=== PATIENT | female | born 1945 | race Caucasian/White ===

== ENCOUNTER → 2017-07-06 | Outpatient (CLI) | payer MEDICARE, OTHER ==
[~2017-07-06] MED LIST: ALBU.5I NEB; ALBUAER3 INH; AMLO5TAB22 PO; CEPH500 PO; CHOL4POW4 PO; CYAN1TAB24 PO; DULO1CAP2 PO; FERR324T4 PO; FOLI1 PO; FOLI400T PO; FURO40TA PO; KLOR10TA PO; LASI20TA PO; LEVO.025 PO; LEVO25TA4 PO; MELA10TA3 PO; MELA5 PO; METR-1 PO; NYSTT TOP; OXYB5 PO; OXYB5TAB PO; PROB1CAP PO; QUET1TAB7 PO; QUET25 PO; SPIR50TA21 PO; THIA100T PO; VALE445C2 PO; VALE500C2 PO; VITA10002 PO; Z.0.OXYGENDME FM
[2017-07-06 10:49] LABS: AUTOMATED NEUTROPHIL # 5.1 TH/MM3 (1.8-7.7); BASOPHIL # 0.1 TH/MM3 (0-0.2); EOSINOPHIL # 0.3 TH/MM3 (0-0.4); HEMATOCRIT 44.3 % (35.0-46.0); HEMOGLOBIN 15.1 GM/DL (11.6-15.3); LYMPH % 15.4 % (9.0-44.0); LYMPHOCYTE # 1.1 TH/MM3 (1.0-4.8); MEAN CELL VOLUME 81.6 FL (80.0-100.0); MEAN CORPUSCULAR HEMOGLOBIN 27.8 PG (27.0-34.0); MEAN CORPUSCULAR HGB CONC 34.1 % (32.0-36.0); MEAN PLATELET VOLUME 7.1 FL (7.0-11.0); MONOCYTE # 0.6 TH/MM3 (0-0.9); NEUT % 71.6 % (16.0-70.0); PLATELET COUNT 227 TH/MM3 (150-450); RED BLOOD COUNT 5.43 MIL/MM3 (4.00-5.30); WHITE BLOOD COUNT 7.2 TH/MM3 (4.0-11.0)
[2017-07-06 10:59] LABS: ALBUMIN 3.3 GM/DL (3.4-5.0); ALT (GPT) 19 U/L (10-53); AST (GOT) 15 U/L (15-37); BICARBONATE 31.3 MEQ/L (21.0-32.0); BLOOD UREA NITROGEN 12 MG/DL (7-18); CHLORIDE 103 MEQ/L (98-107); CREATININE 0.92 MG/DL (0.50-1.00); GLOMERULAR FILTRATION RATE 60 ML/MIN (>89); GLUCOSE,FASTING 95 MG/DL (74-99); SODIUM (NA) 140 MEQ/L (136-145)
[2017-07-06 11:01] LABS: ALKALINE PHOSPHATASE 85 U/L (45-117); TOTAL BILIRUBIN ADULT 0.8 MG/DL (0.2-1.0); TOTAL PROTEIN 7.7 GM/DL (6.4-8.2)
--- NOTE | 2017-07-06 11:43 | RADRPT ---
EXAM DATE/TIME: 07/06/2017 11:01 [place] COMPARISON: No previous studies available for comparison. INDICATIONS : Evaluate for pneumothorax, pneumonia, or communicable disease. Pre op for lap Rehan. MEDICAL HISTORY : Chronic shortness of breath. SURGICAL HISTORY : None. ENCOUNTER: Initial ACUITY: 1 day PAIN SCORE: 0/10 LOCATION: Bilateral chest FINDINGS: PA and lateral views of the chest demonstrate the lungs to be symmetrically aerated without evidence of mass, infiltrate or effusion. Hiatal hernia. The cardiomediastinal contours are unremarkable. Oss eous structures are intact. CONCLUSION: No acute disease. Kevin Eduardo MD on July 06, 2017 at 11:40 Board Certified Radiologist. This report was verified electronically.
== END ==
LOC: CPRE 09:53
PROVIDERS: ATTEND Surgery Trauma Surgery
DX: Z01.811 Encounter for preprocedural respiratory examination (principal); Z01.812 Encounter for preprocedural laboratory examination; Z01.818 Encounter for other preprocedural examination; K44.9 Diaphragmatic hernia without obstruction or gangrene; K21.9 Gastro-esophageal reflux disease without esophagitis
CPT/HCPCS: 36415; 71046; 80053; 85025

== ENCOUNTER 2017-07-13 05:57 | Inpatient (IN) | payer MEDICARE, OTHER ==
[~2017-07-13] VITALS: Ht 149.9 cm; Wt 115.0 kg
[~2017-07-13 05:57] MED LIST changes: -AMLO5TAB22 PO; -CEPH500 PO; -CHOL4POW4 PO; -FERR324T4 PO; -FOLI1 PO; -LASI20TA PO; -LEVO.025 PO; -MELA10TA3 PO; -METR-1 PO; -NYSTT TOP; -OXYB5 PO; -PROB1CAP PO; -QUET25 PO; -SPIR50TA21 PO; -THIA100T PO; -VALE500C2 PO; -VITA10002 PO; -Z.0.OXYGENDME FM
[2017-07-13] MEDS ORDERED: POVIDONE IODINE 5% (ANTISEPSIS KIT) 4 APPLICATIONS EACH NARE PRN (06:15)
[2017-07-13] MEDS ORDERED: LACTATED RINGER'S 1000 ML IV PRN (06:15)
[2017-07-13] MEDS ORDERED: METOPROLOL TARTRATE 25 MG TAB PO PRN (06:15)
[2017-07-13] MEDS ORDERED: SODIUM CHLORID 0.9% 500 ML IV PRN (06:15)
[2017-07-13] MEDS ORDERED: CHLORHEXIDINE GLUCONATE 2 % 1 PACK (2 CLOTHS) TOPICAL PRN (06:15)
[2017-07-13] MEDS ORDERED: METRONIDAZOLE 500 MG/100 ML ISONTONIC SOLN IV PRN (06:30)
[2017-07-13] MEDS ORDERED: CEFAZOLIN INJ 2,000 MG in SODIUM CHLORIDE 0.9% INJ 100 ML IV PRN (06:30)
[2017-07-13] MEDS ORDERED: ACETAMINOPHEN 1000 MG/100 ML 100 ML IV ONE (06:58)
[2017-07-13] MEDS ORDERED: fentaNYL CITRATE 250 MCG/5 ML AMP ONE (06:58)
[2017-07-13] MEDS ORDERED: BUPIVACAINE/EPINEPHRINE 0.25% 50 ML VIAL ONE (07:21)
[2017-07-13] MEDS: LACTATED RINGER'S 1000 ML INJ 1,000 ML IV SCH (10:05)
[2017-07-13] MEDS ORDERED: SUGAMMADEX SODIUM 200 MG/2 ML VIAL IV PUSH ONE (10:06)
[2017-07-13] MEDS ORDERED: DO NOT ADM ANY ANTICOAGULANT DRUGS PRN (10:12)
[2017-07-13] MEDS ORDERED: RESP: ALBUTEROL 1.25 MG/3 ML NEB (PRN) NEB (10:15)
[2017-07-13] MEDS ORDERED: MORPHINE SULFATE 8 MG/ML INJ IV PUSH PRN (10:15)
[2017-07-13] MEDS ORDERED: oxyCODONE/ACETAMINOPHEN 5 MG/325 MG TAB PO PRN (10:15)
[2017-07-13] MEDS ORDERED: ONDANSETRON HCL 4 MG/2 ML VIAL IV PUSH PRN (10:15)
[2017-07-13] MEDS ORDERED: MAGNESIUM HYDROXIDE SUSP 30 ML CUP PO PRN (10:15)
[2017-07-13] MEDS ORDERED: KETOROLAC TROMETHAMINE 30 MG/ML (IVP) VIAL IVP PRN (10:15)
[2017-07-13] MEDS ORDERED: Post-op Orders (for Pharmacy) XX ONE (10:15)
[2017-07-13] MEDS ORDERED: *LABETALOL HCL 100 MG/20 ML VIAL PERIprocedural Use ONLY ONE (10:16)
--- NOTE | 2017-07-13 10:19 | PD.PROCEDR ---
Procedure Note Procedure Operative report Preoperative diagnosis Symptomatic hiatal hernia with gastroesophageal reflux disease. Cholelithiasis Postoperative diagnosis Same Procedure Laparoscopic repair hiatal hernia with [place] BIO a mesh and partial fundoplication Laparoscopic cholecystectomy Surgeon Nacho Alvarado MD Insurance Sales Representative [place] MS3 so. Anesthesia General endotracheal Indications for procedure This is a pleasant obese 71-year-old woman who has a known 5 cm hiatal hernia on upper endoscopy with the third of her stomach up in her chest on CT abdomen and pelvis as well as gallstones. She complains of burning epigastric pain, made worse with eating. She underwent preoperative cardiac and pulmonary evaluation was cleared for surgery. She has difficulty with regurgitation and continued gastroesophageal reflux disease. She was desirous of operative therapy. Description of procedure in detail Patient was identified as Hannah Britton taken to the operating room and placed in a supine position. Sequential compression devices were placed on bilateral lower extremities. Following induction of adequate general endotracheal anesthesia the patient's abdomen was prepped and draped in usual sterile fashion with Betadine. A timeout procedure was performed. Following completion timeout procedure everyone's satisfaction within the room local anesthetic was placed in each proposed trocar incision site. Starting about 6 cm above the umbilicus and 2 cm vertical incision was carried out the scalpel. Dissection continued posteriorly to level of midline fascia which was incised with a scalpel. Entry into the peritoneal cavity was facilitated with the surgeon's finger. The applied medical balloon [place] trocar was placed into the peritoneal cavity its balloon inflated and CO2 insufflation to level of 15 mmHg ensued. Patient was placed in a steep reverse Trendelenburg position and for upper abdominal 5 mm trochars placed in the peritoneal cavity under direct laparoscopic view after incision and skin with a scalpel. [place] flex liver retractor was placed beneath a very large left lateral lobe the liver with changes consistent with fatty infiltrated liver was retracted anteriorly and held position of the robot arm. Attention was then turned to taking down the gastric hepatic ligament. Using the harmonic scalpel was performed which allowed for identification of the right side diaphragmatic crura. Circumferentially the hiatal hernia sac was released from the anterior mediastinum taking care to avoid injury to the esophagus and stomach. A window at the GE junction was developed and the neelam flex reina's hook retractor was placed through this opening allowing for retraction of the GE junction inferiorly below the diaphragm. Further attachments of the stomach to the mediastinal hiatal hernia sac with were released. The sac was removed from the mediastinum and its entirety. Attention was then turned to approximation of the diaphragmatic crura posteriorly. This was performed with interrupted 0 Ethibond sutures using the suture assistant associate full professor device and a bio a pledget. A 36 [place] esophageal bougie was then placed down through the esophagus by the nurse stockroom coordinator into the stomach. A piece of bile a cut into a C-shaped placed in reverse present position to reinforce the diaphragmatic repair was then placed around the esophagus. It was sutured in position with the 0 Ethibond sutures at the 6 and 10 o'clock position to the diaphragmatic crura. The bougie was withdrawn above the GE junction allowing for mobilization of the fundus of the stomach through posterior window. Partial fundoplication was then performed by suturing the wrap to the lateral wall of the esophagus on both sides using 2 interrupted 0 Ethibond sutures. 2 additional sutures were placed the posterior wrap to the bio a mesh and the diaphragmatic crura. Once this had been completed 4 mL of Tisseel fibrin sealant was then placed to further encourage adherence of the bio a to the undersurface of the diaphragm muscle. 10 cc of local anesthetic was placed in subdiaphragmatic position. The neelam flex liver retractor was then removed from the undersurface of the left lateral lobe the liver and attention was turned to cholecystectomy. The gallbladder was removed from the gallbladder fossa and a dome down technique using the harmonic scalpel. The cystic artery divided with a harmonic scalpel and the cystic duct was isolated from surrounding tissues and ligated proximally distally with 0 PDS Endoloops. The cystic duct was divided between the Endoloops placed into an Endo retrieval bag and removed through the 10 mm camera port incision site and passed off the field for pathologic evaluation. Gallbladder fossa was hemostatic. The cystic duct ligature remained intact. The cystic arterial stump was hemostatic. There was no bilious or bloody drainage. 10 cc of local anesthetic was placed in the subhepatic position. All trochars were removed under direct visualization there was no evidence of bleeding from trocar sites. The abdomen was actively desufflated through the camera port incision site. This port was then removed. Fascial incision was closed with 2 interrupted 0 Vicryl [id number] sutures. Port sites were irrigated with saline and closed with 4 Monocryl subcuticular sutures. Dressings were applied with Mastisol and half-inch brown Steri-Strips. Patient tolerated the procedures without apparent complication. Sponge needle and instrument counts were correct at the end of the case. End dictation operative report on patient [place] Nacho Schmitz MD Jul 13, 2017 10:19
[2017-07-13] MEDS ORDERED: PERC5TAB12 PO (10:20)
[2017-07-13] MEDS ORDERED: RESP: ALBUTEROL CONC 2.5 MG/0.5 ML NEB NEB PRN (10:30)
[2017-07-13] MEDS ORDERED: ALBUTEROL SULFATE 90 MCG/ACT HFA 8 GM INHALER INH PRN (10:30)
[2017-07-13] MEDS ORDERED: *morphine SULFATE 4 MG/ML PERIprocedure ONLY ONE ×2 (11:20→11:45)
[2017-07-13] MEDS ORDERED: ESMOLOL HCL 100 MG/10 ML VIAL IV ONE (12:00)
[2017-07-13] MEDS ORDERED: ceFAZolin INJ 1,000 MG VIAL IV ONE (12:00)
[2017-07-13] MEDS ORDERED: VECURONIUM BROMIDE 20 MG VIAL IV ONE (12:00)
[2017-07-13] MEDS ORDERED: ePHEDrine/NS 25 MG/5 ML SYRINGE IV ONE (12:00)
[2017-07-13] MEDS ORDERED: LIDOCAINE HCL 1% PF 5 ML SYRINGE OTHER ONE (12:00)
[2017-07-13] MEDS ORDERED: ROCURONIUM INJ 50 MG/5 ML SYRINGE IV PUSH ONE (12:00)
[2017-07-13] MEDS ORDERED: PROPOFOL 200 MG/20 ML AMP IV ONE (12:00)
[2017-07-13] MEDS ORDERED: ONDANSETRON HCL 4 MG/2 ML VIAL IV PUSH ONE (12:00)
[2017-07-13] MEDS ORDERED: DEXAMETHASONE SOD PHOS 4 MG/ML VIAL IV ONE (12:00)
[2017-07-13] MEDS ORDERED: KETOROLAC TROMETHAMINE 30 MG/ML (IVP) VIAL IV PUSH ONE (12:00)
[2017-07-13] MEDS ORDERED: LACTATED RINGER'S 1000 ML INJ 1,000 ML IV ONE (12:00)
[2017-07-13] MEDS ORDERED: LABETALOL HCL 100 MG/20 ML VIAL IV ONE (12:00)
[2017-07-13] MEDS ORDERED: PHENYLEPH/NS 1000 MCG/10 ML SYR IV ONE (12:00)
[2017-07-13] MEDS ORDERED: NEOSTIGMINE 5 MG/5 ML SYRINGE IV PUSH ONE (12:00)
[2017-07-13] MEDS ORDERED: STERILE WATER FOR INJECTION 20 ML VIAL IV ONE (12:00)
[2017-07-13] MEDS ORDERED: GLYCOPYRROLATE 1 MG/5 ML SYRINGE IV PUSH ONE (12:00)
[2017-07-13] MEDS: oxyCODONE/ACETAMINOPHEN 5 MG/325 MG TAB PO PRN ×2 (15:01→19:53)
[2017-07-13 16:00] VITALS: BP 132/62; PULSE 85; RESP 18; TEMP 97.8; O2SAT 94
[2017-07-13 16:26] VITALS: O2SAT 94
[2017-07-13] MEDS: QUEtiapine FUMARATE 25 MG TAB PO SCH (19:50)
[2017-07-13] MEDS: MELATONIN 5 MG TAB PO SCH (19:50)
[2017-07-13 20:00] VITALS: BP 130/59; PULSE 87; RESP 16; TEMP 98; O2SAT 93
[2017-07-14] VITALS: BP 124/63; PULSE 81; RESP 16; TEMP 97.8; O2SAT 92
[2017-07-14] MEDS: LEVOTHYROXINE SODIUM 25 MCG TAB PO SCH (05:16)
[2017-07-14] MEDS: oxyCODONE/ACETAMINOPHEN 5 MG/325 MG TAB PO PRN ×4 (05:16→20:03)
[2017-07-14] MEDS: LACTATED RINGER'S 1000 ML INJ 1,000 ML IV SCH ×2 (05:16→14:41)
[2017-07-14 08:00] VITALS: BP 121/59; PULSE 80; RESP 17; TEMP 97.6; O2SAT 96
[2017-07-14] MEDS ORDERED: VALERIAN ROOT PO SCH (09:00)
[2017-07-14] MEDS: TOLTERODINE TARTRATE 2 MG CAP LA PO SCH (09:22)
[2017-07-14] MEDS: POTASSIUM CHLORIDE 10 MEQ CONTROLLED RELEASE TAB PO SCH (09:22)
[2017-07-14] MEDS: QUEtiapine FUMARATE 25 MG TAB PO SCH ×2 (09:23→22:04)
[2017-07-14] MEDS: FOLIC ACID 1 MG TAB PO SCH (09:23)
[2017-07-14] MEDS: FUROSEMIDE 40 MG TAB PO SCH (09:23)
[2017-07-14] MEDS: DULoxetine HCl DR 30 MG CAP PO SCH (09:23)
[2017-07-14] MEDS: CYANOCOBALAMIN 1,000 MCG TAB PO SCH (09:24)
[2017-07-14] MEDS: ENOXAPARIN SODIUM 30 MG/0.3 ML SYRINGE SQ SCH (09:24)
--- NOTE | 2017-07-14 11:24 | HHI.DS ---
Discharge Summary Admission Date Jul 13, 2017 at 10:09 Discharge Date: Jul 15, 2017 Admitting Diagnosis Hiatal hernia, gastroesophageal reflux disease, cholelithiasis Procedures Laparoscopic repair hiatal hernia with [place] bio a mesh and partial fundoplication, laparoscopic cholecystectomy Brief History Pleasant 71-year-old morbidly obese woman has had progressive difficulties with gastroesophageal reflux disease and dysphagia. She has had upper abdominal discomfort. She has a known hiatal hernia. She has had esophageal changes consistent with reflux. She has gallstones. She was desirous of surgical therapy. Significant Findings Moderate size hiatal hernia. Partial fundoplication performed. Gallbladder removed and sent to pathology. Gallstones palpated within gallbladder. Minimal operative blood loss. PE at Discharge Patient is developed a itchy rash in the left upper extremity. Incision sites on the abdomen are all healing well but he Steri-Strips. There are no signs of infection. Hospital Course Patient was admitted through same-day surgery taken to the operating room for the above-mentioned procedure. She has normal postsurgical discomfort. She has early satiety but is able to swallow without difficulties. Benadryl has been ordered for her left upper extremity itchy rash. The patient was a little unsteady in her feet and desired staying 1 more night in the hospital prior to planned discharge for tomorrow. Pt Condition on Discharge: Good Discharge Disposition: Discharge Home Discharge Instructions DIET: Follow Instructions for: Full Liquid Diet Activities you can perform: Shower Only-No Bath Activities to Avoid: Strenuous Activity, Driving Nacho Alvarado MD Jul 14, 2017 11:24
--- NOTE | 2017-07-14 11:40 | HHI.PR ---
Subjective Subjective Notes Patient is doing pretty well. She has some incisional tenderness in the supraumbilical incision has had complaints of some shoulder pain. She is swallowing but gets full quickly. Objective Vitals/I&O Vital Signs Date Time Temp Pulse Resp B/P (MAP) Pulse Ox O2 Delivery O2 Flow Rate FiO2 07/14/17 08:00 97.6 80 17 121/59 (79) 96 07/13/17 16:26 Nasal Cannula 2.00 Cardiovascular: Regular Lungs: Clear Abdomen: Non-distended, Post-op tenderness Narrative Exam Patient is developed a itchy rash in the left upper extremity. Incision sites on the abdomen are all healing well but he Steri-Strips. There are no signs of infection. A/P Assessment and Plan Postoperative day 1 status post laparoscopic repair hiatal hernia with [place] bio a mesh and partial fundoplication, laparoscopic cholecystectomy. Doing well overall. Itchy rash left upper extremity to be treated with Benadryl. Patient feels a little shaky on her feet and asked to be discharged tomorrow. Orders for discharge have been placed for Sunday. As long as she is able to tolerate liquids by mouth can get up to the bathroom and her pain is well- controlled with Percocet she can be discharged tomorrow. Orders have been placed and instructions have been provided. A prescription for Percocet is on her chart. Nacho Alvarado MD Jul 14, 2017 11:40
[2017-07-14 12:00] VITALS: BP 127/60; PULSE 74; RESP 19; TEMP 97.4; O2SAT 95
[2017-07-14] MEDS: diphenhydrAMINE HCL 25 MG CAP PO PRN ×2 (12:53→20:03)
[2017-07-14 16:00] VITALS: BP 118/53; PULSE 78; RESP 15; TEMP 97.2; O2SAT 96
[2017-07-14 20:00] VITALS: BP 124/59; PULSE 70; RESP 16; TEMP 97.5; O2SAT 96
[2017-07-14] MEDS: MELATONIN 5 MG TAB PO SCH (22:04)
[2017-07-15] VITALS: BP 138/67; PULSE 65; RESP 16; TEMP 97.3; O2SAT 95
[2017-07-15] MEDS: oxyCODONE/ACETAMINOPHEN 5 MG/325 MG TAB PO PRN ×2 (04:18→11:43)
[2017-07-15] MEDS: LEVOTHYROXINE SODIUM 25 MCG TAB PO SCH (05:52)
[2017-07-15 08:00] VITALS: BP 99/52; PULSE 69; RESP 17; TEMP 97.1; O2SAT 90
[2017-07-15] MEDS: POTASSIUM CHLORIDE 10 MEQ CONTROLLED RELEASE TAB PO SCH (09:09)
[2017-07-15] MEDS: FUROSEMIDE 40 MG TAB PO SCH (09:09)
[2017-07-15] MEDS: DULoxetine HCl DR 30 MG CAP PO SCH (09:09)
[2017-07-15] MEDS: TOLTERODINE TARTRATE 2 MG CAP LA PO SCH (09:09)
[2017-07-15] MEDS: FOLIC ACID 1 MG TAB PO SCH (09:10)
[2017-07-15] MEDS: CYANOCOBALAMIN 1,000 MCG TAB PO SCH (09:10)
[2017-07-15] MEDS: QUEtiapine FUMARATE 25 MG TAB PO SCH (09:10)
[2017-07-15] MEDS: ENOXAPARIN SODIUM 30 MG/0.3 ML SYRINGE SQ SCH (09:11)
== END 2017-07-15 11:47 | disposition home or self-care (01) | DRG 327 ==
LOC: HSDC 05:57 → N07A 10:09
PROVIDERS: ADMIT Surgery Trauma Surgery; ATTEND Surgery Trauma Surgery
PROC: 0DV44ZZ Restriction of Esophagogastric Junction, Percutaneous Endoscopic Approach (ICD-10-PCS; 2017-07-13)
PROC: 0BUT4JZ Supplement Diaphragm with Synthetic Substitute, Percutaneous Endoscopic Approach (ICD-10-PCS; principal; 2017-07-13 07:52)
PROC: 0FT44ZZ Resection of Gallbladder, Percutaneous Endoscopic Approach (ICD-10-PCS; 2017-07-13 07:52)
DX: K44.9 Diaphragmatic hernia without obstruction or gangrene (principal); Z68.43 Body mass index [BMI] 50.0-59.9, adult; K21.9 Gastro-esophageal reflux disease without esophagitis; K80.20 Calculus of gallbladder without cholecystitis without obstruction; J44.9 Chronic obstructive pulmonary disease, unspecified; I11.0 Hypertensive heart disease with heart failure; I50.9 Heart failure, unspecified; R63.3 Feeding difficulties; R06.02 Shortness of breath; K29.60 Other gastritis without bleeding; E66.01 Morbid (severe) obesity due to excess calories; M25.519 Pain in unspecified shoulder; R21 Rash and other nonspecific skin eruption; R68.81 Early satiety
CPT/HCPCS: 88304; 94150; C1781; J0131; J0690; J1100; J1650; J1885; J2270; J2370; J2405; J2710; J3010; J7120